=== PATIENT | male | born 1980 | race Caucasian/White ===

== ENCOUNTER 2023-12-17 04:34 | Emergency (ER) | payer OTHER, SELFPAY ==
[2023-12-17 04:35] VITALS: BP 148/100; PULSE 63; RESP 18; TEMP 36.6; O2SAT 100; BMI 28.9
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
== END 2023-12-17 04:55 ==
PROVIDERS: Emergency Provider Emergency Medicine; PCP Nurse Practitioner Family
DX: Z04.1 Encounter for examination and observation following transport accident (principal)
CPT/HCPCS: 99281